=== PATIENT | male | born 1975 | race Asian ===

== ENCOUNTER 2018-06-25 01:10 | Emergency (ER) | payer OTHER | END 2018-06-25 03:18 | disposition home or self-care (01) | LOC: FTE 01:10 | DX: J20.9 Acute bronchitis, unspecified (principal); J45.909 Unspecified asthma, uncomplicated | CPT/HCPCS: 71045; 99283-25 ==

== ENCOUNTER 2018-08-26 15:15 | Emergency (ER) | payer OTHER | END 2018-08-26 17:18 | disposition home or self-care (01) | LOC: FTE 15:15 | DX: R05 Cough (principal); J45.909 Unspecified asthma, uncomplicated | CPT/HCPCS: 99283; Z7502 ==